=== PATIENT | female | born 1955 | race Caucasian/White ===

== ENCOUNTER 2021-03-16 06:53 | Day surgery (SDC) | payer MEDICARE, BC ==
[2021-03-05 14:36] LABS: EOSINOPHILS # (AUTO) 0.3 X10'3 (0-0.9); MONOCYTES # (AUTO) 0.6 X10'3 (0-0.9); NEUTROPHILS # (AUTO) 4.3 X10'3 (1.8-7.7)
[2021-03-05 14:38] LABS: BASOPHILS # (AUTO) 0.1 X10'3 (0-0.2); EOSINOPHILS % (AUTO) 3.8 % (0-6); LYMPHOCYTES # (AUTO) 2.2 X10'3 (1.1-4.8); LYMPHOCYTES % (AUTO) 29.1 % (21-51); MEAN CORPUSCULAR HEMOGLOBIN 30.7 PG (27.0-31.0); MEAN CORPUSCULAR HGB CONC 33.4 g/dL (33.0-36.5); MEAN CORPUSCULAR VOLUME 91.9 FL (78-98); MEAN PLATELET VOLUME 8.4 FL (7.4-10.4); MONOCYTES % (AUTO) 7.9 % (2-12); NEUTROPHILS % (AUTO) 57.2 % (42-75); PRE OP HEMATOCRIT 42.7 % (35.0-45.0); PRE OP HEMOGLOBIN 14.3 g/dL (12.0-16.0); PRE OP PLATELET COUNT 373 X10'3 (140-440); RED BLOOD COUNT 4.64 X10'6 (4.20-5.60); RED CELL DISTRIBUTION WIDTH 14.1 % (11.5-14.5)
[2021-03-05 14:44] LABS: ALBUMIN 3.7 G/DL (3.4-5.0); ALBUMIN/GLOBULIN RATIO 1.1 (1.1-1.5); ALKALINE PHOSPHATASE 88 IU/L (46-116); BLOOD UREA NITROGEN 17 MG/DL (7-18); BUN/CREATININE RATIO 18.3 (6.6-38.0); CALCIUM 9.9 MG/DL (8.5-10.1); CHLORIDE 110 MMOL/L (99-107); CREATININE 0.93 MG/DL (0.40-0.90); PRE OP ALT 23 U/L (30-65); PRE OP ANION GAP 8 (8-16); PRE OP AST 24 U/L (10-37); PRE OP BILIRUB, TOTAL 0.4 MG/DL (0.0-1.0); PRE OP GLUCOSE 104 MG/DL (70-104); PRE OP POTASSIUM 3.6 MMOL/L (3.4-5.1); PRE OP SODIUM 145 MMOL/L (135-145); TOTAL CARBON DIOXIDE 27.3 MMOL/L (24-32); TOTAL PROTEIN 7.2 G/DL (6.4-8.2); eGFR 60 ML/MIN
[2021-03-16] VITALS (8 sets, daily range): BP systolic 107–135; BP diastolic 70–92
[~2021-03-16] VITALS: Ht 165.1 cm; Wt 94.3 kg
[~2021-03-16 06:53] MED LIST: BETA1TAB20 PO; CALC-854 PO; CHOL400T32 PO; ETOD-189 PO; ETOD500T PO; FLUT16SP2 BOTHNARES; FLUT16SP2 NS; GLUC-212 PO; LMEF1TAB2 PO; LORA-641 PO; MONT10TA21 PO; MULT-1074 PO; OLOP2.5D12 OP; OMEG-79 PO; PAT0.1OS OP; TURM538C PO; UBID10CA4 PO; cefazolin/dext.iso 2gm/100ml IV ONE; famotidine 20mg tablet PO ONE; ringers solution, lacted 1,000 ML IV SCH
[2021-03-16] MEDS ORDERED: LIDOcaine 1% 30ml preserv. free vial ONE (07:17)
[2021-03-16] MEDS ORDERED: midazolam 1 mg/ML 2ml injection ONE (08:49)
[2021-03-16] MEDS ORDERED: fentaNYL/PF 50MCG/1 ML 2ML syringe ONE (08:49)
[2021-03-16] MEDS ORDERED: ketorolac trometh. 30mg/ml inj. ONE (08:52)
[2021-03-16] MEDS ORDERED: BUPIVAcaine/PF 2.5mg/ml (0.25%) 10ml vial IJ ONE (09:11)
--- NOTE | 2021-03-16 09:31 | NUR ---
Received from OR via [facility] IN STABLE CONDITION , accompanied by Anesthesiologist and ASSOCIATE THEATRE PROFESSOR report given by Anesthesidori. Addendum: 03/16/21 at 1110 by Emily Mei RN Amended: Links added.
--- NOTE | 2021-03-16 10:51 | NUR ---
PATIENT DISCHARGED FROM PACU AFTER GIVEN WRITTEN AND VERBAL DISCHARGE INSTRUCTIONS. PATIENT GAVE VERBAL UNDERSTANDING OF INSTRUCTIONS GIVEN. PATIENT LEFT FACILITY VIA WHEELCHAIR WITH VOLUNTEER. Addendum: 03/16/21 at 1121 by Emily Mei RN Amended: Links added.
== END 2021-03-16 10:51 | disposition home or self-care (01) ==
LOC: PAS 06:53
PROVIDERS: ATTEND Orthopaedic Surgery Hand Surgery
DX: M67.431 Ganglion, right wrist (principal); M67.441 Ganglion, right hand; M19.90 Unspecified osteoarthritis, unspecified site; E66.01 Morbid (severe) obesity due to excess calories; Z68.39 Body mass index [BMI] 39.0-39.9, adult; Z88.8 Allergy status to other drugs, medicaments and biological substances; Z88.0 Allergy status to penicillin; Z88.1 Allergy status to other antibiotic agents; Z98.890 Other specified postprocedural states; Z79.899 Other long term (current) drug therapy; Z85.820 Personal history of malignant melanoma of skin; Z98.1 Arthrodesis status; Z90.710 Acquired absence of both cervix and uterus
CPT/HCPCS: 25111; 26160; 36415; 80053; 85025; 93005; J1885; J2001; J2250; J3010; J3490; J7120; A4215; A4618; A7000